=== PATIENT | female | born 1945 | race Caucasian/White ===

== ENCOUNTER 2016-10-07 10:31 | Outpatient (CLI) | payer MEDICARE, OTHER ==
--- NOTE | 2016-10-08 11:53 | DEXA Report ---
DEXA BONE MINERAL DENSITY SCAN: 10/07/2016 CLINICAL HISTORY: A 71-year-old postmenopausal female. TECHNIQUE: Dual energy x-ray absorptiometry (DXA) was performed on a [employer] system. Regions measured are the AP spine, femoral neck, and, if needed, forearm. COMPARISON: None. In accordance with the International Society for Clinical Densitometry (ISCD) guidelines, data from previous exams may be reanalyzed using current recommendations and techniques. This is done to allow a more accurate basis for comparison with the current study. FINDINGS: The data for the lumbar spine is as follows: REGION BMD (g/cm/cm) T-SCORE Z-SCORE L1 0.810 -2.7 -0.9 L2 0.983 -1.8 0.0 L3 1.091 -0.9 0.9 L4 1.202 0.0 1.8 TOTAL 1.025 -1.3 0.5 NOTE: All evaluable vertebrae are used for classification. The data for the hip is as follows: REGION BMD (g/cm/cm) T-SCORE Z-SCORE Neck 1.000 -0.3 1.6 TOTAL 0.940 -0.5 1.1 NOTE: The femoral neck or total proximal femur, whichever is lowest, is used for classification. IMPRESSION: THE WHO CLASSIFICATION BASED ON THE INTERNATIONAL REFERENCE STANDARD IS MILD OSTEOPENIA. PATIENT HAS A MILD INCREASED FRACTURE RISK. RECOMMENDATION: Patients with diagnosis of osteoporosis or osteopenia should have regular bone mineral density assessment. For those eligible for Medicare, routine testing is allowed once every 2 years. Testing frequency can be increased for patients who have rapidly progressing disease or for those who are receiving medical therapy to restore bone mass. COMMENT: World Health Organization (WHO) definitions for osteoporosis and osteopenia: NORMAL BMD: T-score at -1.0 or higher, fracture risk is low. OSTEOPENIA BMD: T-score between -1.0 and -2.5, fracture risk is increased. OSTEOPOROSIS BMD: T-score at -2.5 or lower, fracture risk high. National Osteoporosis Foundation recommends: 1. Obtain adequate dietary calcium (at least 1200 mg per day) and vitamin D (400 -800 international units per day). 2. Participate, as appropriate, in regular weightbearing and muscle- strengthening exercise. 3. Avoid tobacco use and reduce alcohol and caffeine intake. 4. For more detailed information see the website at www.NOF.org. MTDD
== END 2016-10-07 10:32 | disposition home or self-care (01) ==
LOC: DI 10:31
PROVIDERS: ATTEND Family Medicine
DX: M85.88 Other specified disorders of bone density and structure, other site (principal)
CPT/HCPCS: 77080

== ENCOUNTER 2017-02-03 08:00 | Outpatient (CLI) | payer MEDICARE, OTHER ==
[2017-02-03 19:47] LABS: CREATININE 1.1 mg/dL (0.4-1.0)
== END 2017-02-03 08:01 | disposition home or self-care (01) ==
LOC: LAB.WCP 08:00
PROVIDERS: ATTEND Physician Assistant Medical
DX: B35.1 Tinea unguium (principal); Z79.899 Other long term (current) drug therapy
CPT/HCPCS: 36415; 82565; 84450; 84460

== ENCOUNTER 2017-03-23 14:25 | Outpatient (CLI) | payer MEDICARE, OTHER ==
[2017-03-23 19:22] LABS: CREATININE 1.3 mg/dL (0.4-1.0)
== END 2017-03-23 14:26 ==
LOC: LAB.WCP 14:25
PROVIDERS: ATTEND Physician Assistant Medical
DX: B35.1 Tinea unguium (principal); Z79.899 Other long term (current) drug therapy
CPT/HCPCS: 36415; 82565; 84450; 84460

== ENCOUNTER 2017-03-30 11:35 | Outpatient (CLI) | payer MEDICARE, OTHER ==
--- NOTE | 2017-03-31 15:42 | Mammography Report ---
DATE OF SERVICE: 03/30/2017 DIGITAL SCREENING MAMMOGRAM: 03/30/2017 CLINICAL INDICATION: A 71-year-old, for screening. COMPARISON: 02/2016, 02/2015, 06/2013, 03/2012, 03/2011, 03/2010, 03/2009. TECHNIQUE: Routine CC and MLO projections were obtained of the breasts. FINDINGS: The breasts demonstrate fatty replacement bilaterally. Punctate, typically benign calcifications are present. No suspicious masses, clustered microcalcifications, or regions of architectural distortion are identified. IMPRESSION: BENIGN FINDINGS. RECOMMENDATION: ROUTINE ANNUAL SCREENING UNLESS OTHERWISE CLINICALLY INDICATED. BIRADS CATEGORY 2-BENIGN FINDINGS. STANDARD QUALIFYING STATEMENTS: 1. This examination was reviewed with the aid of Computer-Aided Detection (CAD). 2. A negative or benign imaging report should not delay biopsy if clinically suspicious findings are present. Consider surgical consultation if warranted. More than 5% of cancers are not identified by imaging. 3. Dense breasts may obscure an underlying neoplasm. TD: 03/31/2017 16:41
== END 2017-03-30 11:36 | disposition home or self-care (01) ==
LOC: DI.N 11:35
PROVIDERS: ATTEND Family Medicine
DX: Z12.31 Encounter for screening mammogram for malignant neoplasm of breast (principal)
CPT/HCPCS: 77067

== ENCOUNTER 2017-05-06 12:15 | Outpatient (CLI) | payer MEDICARE, OTHER ==
[2017-05-06 18:49] LABS: CREATININE 0.9 mg/dL (0.4-1.0)
== END 2017-05-06 12:16 | disposition home or self-care (01) ==
LOC: LAB.WCP 12:15
PROVIDERS: ATTEND Physician Assistant Medical
DX: B35.1 Tinea unguium (principal); Z79.899 Other long term (current) drug therapy
CPT/HCPCS: 36415; 82565; 84450; 84460

== ENCOUNTER 2017-07-02 08:00 | Outpatient (CLI) | payer MEDICARE, OTHER ==
[2017-07-02 19:07] LABS: CREATININE 0.8 mg/dL (0.4-1.0)
== END 2017-07-02 08:01 | disposition home or self-care (01) ==
LOC: LAB.WCP 08:00
PROVIDERS: ATTEND Physician Assistant Medical
DX: B35.1 Tinea unguium (principal); Z79.899 Other long term (current) drug therapy
CPT/HCPCS: 36415; 82565; 84450; 84460

== ENCOUNTER 2017-10-08 14:31 | Outpatient (CLI) | payer MEDICARE, OTHER ==
--- NOTE | 2017-10-08 18:05 | Ultrasound Report ---
Procedure Date: 10/08/2017 Accession Number: [id number] / [id number] Procedure: US - Ankle Brachial Index CPT Code: FULL RESULT: EXAM: ANKLE-BRACHIAL INDEX. EXAM DATE: 10/08/2017 04:51 PM. CLINICAL HISTORY: Leg pain, right, decreased dorsalis pedis pulse. COMPARISON: None. TECHNIQUE: Targeted color and spectral Doppler imaging was performed of the bilateral posterior tibial and dorsalis pedis arteries. [employer] images were saved. Blood pressures were also obtained at the bilateral brachial arteries and posterior tibial arteries. FINDINGS: Peak systolic velocities (cm/s) and waveform morphologies: Right HOT PLATE PLYWOOD PRESS OFFBEARER: 94, biphasic Right DPA: 87, biphasic Left HOT PLATE PLYWOOD PRESS OFFBEARER: 90, biphasic Left DPA: 46, biphasic. Brisk upstroke persists. JONAS: Right: 0.96 Left: 0.94 IMPRESSION: 1. Normal bilateral ankle brachial indices. 2. Mildly decreased velocity in the left dorsalis pedis artery without evidence of hemodynamically significant stenosis. RADIA
== END 2017-10-08 14:32 | disposition home or self-care (01) ==
LOC: DI 14:31
PROVIDERS: ATTEND Family Medicine
DX: M79.604 Pain in right leg (principal); R09.89 Other specified symptoms and signs involving the circulatory and respiratory systems
CPT/HCPCS: 93922

== ENCOUNTER 2017-10-12 08:00 | Outpatient (CLI) | payer MEDICARE, OTHER ==
[2017-10-12 12:39] LABS: BASOPHILS # (AUTO) 0.1 10^3/uL (0.0-0.1); BASOPHILS % (AUTO) 1.4 %; EOSINOPHILS # (AUTO) 0.1 10^3/uL (0.0-0.7); EOSINOPHILS % (AUTO) 1.5 %; HGB - HEMOGLOBIN 13.2 g/dL (12.0-16.0); LYMPHOCYTES # (AUTO) 1.1 10^3/uL (1.5-3.5); LYMPHOCYTES % (AUTO) 30.4 %; MEAN CORPUSCULAR HEMOGLOBIN 31.8 pg (27.0-31.0); MEAN CORPUSCULAR VOLUME 93.7 fL (81.0-99.0); MEAN PLATELET VOLUME 7.9 fL (7.9-10.8); MONOCYTES # (AUTO) 0.3 10^3/uL (0.0-1.0); MONOCYTES % (AUTO) 7.5 %; NEUTROPHILS # (AUTO) 2.2 10^3/uL (1.5-6.6); NEUTROPHILS % (AUTO) 59.2 %; PLT - PLATELET COUNT 261 10^3/uL (130-450); RED BLOOD COUNT 4.14 10^6/uL (4.20-5.40); RED CELL DISTRIBUTION WIDTH 12.6 % (12.0-15.0); WHITE BLOOD COUNT 3.7 x10^3/uL (4.8-10.8)
[2017-10-12 13:05] LABS: ALBUMIN 4.1 g/dL (3.2-5.5); ALBUMIN/GLOBULIN RATIO 1.3 (1.0-2.2); ALKALINE PHOSPHATASE 59 IU/L (42-121); ALT ALANINE AMINOTRANSFERASE 25 IU/L (10-60); AST ASPARTATE AMINOTRANSFERASE 28 IU/L (10-42); BILIRUBIN,TOTAL 0.9 mg/dL (0.2-1.0); BUN - BLOOD UREA NITROGEN 17 mg/dL (6-20); CALCIUM 9.2 mg/dL (8.5-10.3); CARBON DIOXIDE - CO2 27 mmol/L (21-32); CHLORIDE 103 mmol/L (101-111); CHOL/HDL RATIO 2.5 (<4.4); CHOLESTEROL 164 mg/dL; CREATININE 0.8 mg/dL (0.4-1.0); GFR - MDRD 70 (>89); GLUCOSE 116 mg/dL (70-100); HDL CHOLESTEROL 65 mg/dL; LDL CHOLESTEROL,CALCULATED 88 mg/dL; LDL/HDL RATIO 1.4 (<4.4); SODIUM 139 mmol/L (135-145); TOTAL PROTEIN 7.3 g/dL (6.7-8.2); VLDL CHOLESTEROL 11 mg/dL
[2017-10-12 13:27] LABS: HB2 TOTAL 14.1 g/dL; HEMOGLOBIN A1C 0.58 g/dL; HEMOGLOBIN A1C % 5.9 % (4.6-6.2)
== END 2017-10-12 08:01 | disposition home or self-care (01) ==
LOC: LAB.WCP 08:00
PROVIDERS: ATTEND Family Medicine
DX: E87.6 Hypokalemia (principal); R73.01 Impaired fasting glucose; E78.5 Hyperlipidemia, unspecified
CPT/HCPCS: 36415; 80053; 80061; 83036; 83721; 84443; 85025

== ENCOUNTER 2018-04-11 11:30 | Outpatient (CLI) | payer MEDICARE, OTHER ==
--- NOTE | 2018-04-12 09:03 | Mammography Report ---
Reason: SCREENING MAMMO Procedure Date: 04/11/2018 Accession Number: [id number] / [id number] Procedure: MGN - Screening Mammo Dig Bilat CPT Code: FULL RESULT: EXAM: Screening Mammo Dig Bilat DATE: 04/11/2018 11:48 AM CLINICAL HISTORY: Screening encounter. No reported risk factors. TECHNIQUE: Bilateral CC and MLO views were obtained. COMPARISON: 03/30/2017 through 06/30/2013. FINDINGS: The breasts demonstrate diffuse fatty replacement bilaterally. There are coarse typically benign calcifications. No suspicious masses, clustered microcalcifications, or regions of architectural distortion are identified. IMPRESSION: Benign findings RECOMMENDATION: Routine annual screening unless otherwise clinically indicated. BIRADS CATEGORY 2: Benign findings STANDARD QUALIFYING STATEMENTS: 1. This examination was reviewed with the aid of Computer-Aided Detection (CAD). 2. A negative or benign imaging report should not preclude biopsy if clinically suspicious findings are present. 3. Dense breasts may obscure an underlying neoplasm. 4. This examination was reviewed without the aid of 3D breast imaging (tomosynthesis).
== END 2018-04-11 11:31 | disposition home or self-care (01) ==
LOC: DI.N 11:30
DX: Z12.31 Encounter for screening mammogram for malignant neoplasm of breast (principal)
CPT/HCPCS: 77067

== ENCOUNTER 2018-08-18 08:00 | Outpatient (CLI) | payer MEDICARE, OTHER ==
[2018-08-18 12:48] LABS: BASOPHILS % (AUTO) 1.1 %; EOSINOPHILS # (AUTO) 0.1 10^3/uL (0.0-0.7); EOSINOPHILS % (AUTO) 1.8 %; HGB - HEMOGLOBIN 13.5 g/dL (12.0-16.0); LYMPHOCYTES # (AUTO) 1.4 10^3/uL (1.5-3.5); LYMPHOCYTES % (AUTO) 37.3 %; MEAN CORPUSCULAR HEMOGLOBIN 31.2 pg (27.0-31.0); MEAN CORPUSCULAR HGB CONC 33.4 g/dL (32.0-36.0); MEAN CORPUSCULAR VOLUME 93.4 fL (81.0-99.0); MONOCYTES # (AUTO) 0.3 10^3/uL (0.0-1.0); MONOCYTES % (AUTO) 7.9 %; NEUTROPHILS # (AUTO) 1.9 10^3/uL (1.5-6.6); NEUTROPHILS % (AUTO) 51.9 %; PLT - PLATELET COUNT 290 10^3/uL (130-450); RED BLOOD COUNT 4.31 10^6/uL (4.20-5.40); RED CELL DISTRIBUTION WIDTH 12.7 % (12.0-15.0); WHITE BLOOD COUNT 3.7 x10^3/uL (4.8-10.8)
[2018-08-18 13:16] LABS: FERRITIN 69.7 ng/mL (11.0-306.8)
[2018-08-18 13:24] LABS: % IRON SATURATION 16 % (20-50); ALBUMIN 4.2 g/dL (3.2-5.5); ALBUMIN/GLOBULIN RATIO 1.2 (1.0-2.2); ALKALINE PHOSPHATASE 61 IU/L (42-121); ALT ALANINE AMINOTRANSFERASE 21 IU/L (10-60); AST ASPARTATE AMINOTRANSFERASE 25 IU/L (10-42); BILIRUBIN,TOTAL 0.8 mg/dL (0.2-1.0); BUN - BLOOD UREA NITROGEN 21 mg/dL (6-20); CALCIUM 9.4 mg/dL (8.5-10.3); CARBON DIOXIDE - CO2 25 mmol/L (21-32); CHLORIDE 103 mmol/L (101-111); CHOL/HDL RATIO 2.9 (<4.4); CHOLESTEROL 174 mg/dL; CREATININE 0.7 mg/dL (0.4-1.0); GFR - MDRD 82 (>89); GLUCOSE 110 mg/dL (70-100); HDL CHOLESTEROL 60 mg/dL; IRON 63 ug/dL (28-170); LDL CHOLESTEROL,CALCULATED 105 mg/dL; LDL/HDL RATIO 1.8 (<4.4); SODIUM 139 mmol/L (135-145); TOTAL IRON BINDING CAPACITY 382 ug/dL (250-450); TOTAL PROTEIN 7.6 g/dL (6.7-8.2); TRANSFERRIN 273 mg/dL (192-382); VLDL CHOLESTEROL 9 mg/dL
== END 2018-08-18 23:59 | disposition home or self-care (01) ==
LOC: LAB.WCP 08:00
PROVIDERS: ATTEND Family Medicine
DX: I73.00 Raynaud's syndrome without gangrene (principal); E03.9 Hypothyroidism, unspecified; D64.9 Anemia, unspecified; R01.1 Cardiac murmur, unspecified
CPT/HCPCS: 36415; 80053; 80061; 82728; 83540; 83721; 84443; 84466; 85025

== ENCOUNTER 2018-08-19 12:38 | Outpatient (CLI) | payer MEDICARE, OTHER | END 2018-08-19 12:39 | disposition home or self-care (01) | LOC: DI 12:38 | PROVIDERS: ATTEND Family Medicine | DX: R01.1 Cardiac murmur, unspecified (principal) | CPT/HCPCS: 93306 ==

== ENCOUNTER 2018-09-29 19:48 | Outpatient (CLI) | payer MEDICARE, OTHER | END 2018-09-29 19:49 | disposition critical access hospital (66) | LOC: EMS 19:48 | PROVIDERS: ATTEND Surgery | DX: R55 Syncope and collapse (principal); R42 Dizziness and giddiness; S09.90XA Unspecified injury of head, initial encounter; W18.39XA Other fall on same level, initial encounter; W22.8XXA Striking against or struck by other objects, initial encounter; Y92.000 Kitchen of unspecified non-institutional (private) residence as the place of occurrence of the external cause | CPT/HCPCS: A0425; A0429 ==

== ENCOUNTER 2018-09-29 20:08 | Emergency (ER) | payer MEDICARE, OTHER ==
[2018-09-29] MEDS ORDERED: SODIUM CHLORIDE 0.9% 1,000 ML IV ONE (20:14)
[2018-09-29 20:36] LABS: BASOPHILS % (AUTO) 0.5 %; EOSINOPHILS % (AUTO) 1.1 %; LYMPHOCYTES # (AUTO) 1.1 10^3/uL (1.5-3.5); LYMPHOCYTES % (AUTO) 29.3 %; MEAN CORPUSCULAR HEMOGLOBIN 31.1 pg (27.0-31.0); MEAN CORPUSCULAR HGB CONC 32.8 g/dL (32.0-36.0); MEAN CORPUSCULAR VOLUME 94.7 fL (81.0-99.0); MEAN PLATELET VOLUME 8.7 fL (7.9-10.8); MONOCYTES # (AUTO) 0.3 10^3/uL (0.0-1.0); MONOCYTES % (AUTO) 7.9 %; NEUTROPHILS # (AUTO) 2.2 10^3/uL (1.5-6.6); NEUTROPHILS % (AUTO) 60.9 %; PLT - PLATELET COUNT 206 10^3/uL (130-450); RED BLOOD COUNT 3.22 10^6/uL (4.20-5.40); RED CELL DISTRIBUTION WIDTH 12.3 % (12.0-15.0); WHITE BLOOD COUNT 3.7 x10^3/uL (4.8-10.8)
[2018-09-29 20:48] LABS: ALBUMIN 3.4 g/dL (3.2-5.5); ALBUMIN/GLOBULIN RATIO 1.3 (1.0-2.2); BILIRUBIN,TOTAL 0.5 mg/dL (0.2-1.0); CALCIUM 8.4 mg/dL (8.5-10.3); CREATININE 0.8 mg/dL (0.4-1.0)
--- NOTE | 2018-09-29 21:20 | ED Physician Documentation ---
PD HPI SYNCOPE - Stated complaint Stated Complaint: GLF/NEAR SYNCOPE - Chief complaint Chief Complaint: Trauma Hd/Nk - History obtained from History obtained from: Patient - History of Present Illness Witnessed: Witnessed Timing - onset: Today Duration: Other (She was near syncopal) Preceding symptoms: Light headed, Generalized weakness. No: None Associated symptoms: Nausea / vomiting (While lying on the ground). No: Seizure, Incontinant of urine, Incontinant of stool, Chest pain, Palpitations, Diaphoresis, Dyspnea Contributing factors: Other (Gave blood today). No: Recent med change Injury occurred: Fell, Head injury. No: Neck injury Pain level max: 0 Pain level now: 0 Similar symptoms before: Other (Patient has experienced this previously when she gave blood) Recently seen: Not recently seen - Additional information Additional information: This is a 73-year-old woman who presents with her complains that she gave blood this afternoon around 330. She felt fine and was at home making dinner around 615 for about 45 minutes. Around 7:00 she felt very lightheaded so she sat down on a stool in the kitchen and she sat there she just tipped over falling forward onto the floor and hit her head on the edge of the counter. She did not pass out. She laid there for a bit and then sat up and was feeling okay but she could not get up off the floor because she was just too lightheaded so she called her who came in she was very clammy. She laid back down so she would not pass out and her called 911. When EMS arrived she was still laying on the ground to had an episode of vomiting. They were able to stand her up and help her to the [place]. She says is not like a dizzy sensation it worsened spinning sensation that she is very lightheaded. She denies any chest pain, palpitations or shortness of breath. Denies neck pain. She currently feels just very fatigued. Denies headache or change in her vision. Of note the patient had a similar reaction after giving blood one time in the past.She is on blood pressure medications and takes a baby aspirin daily. Review of Systems Constitutional: denies: Fever Eyes: denies: Loss of vision Nose: denies: Rhinorrhea / runny nose Throat: denies: Sore throat Cardiac: denies: Chest pain / pressure, Palpitations Respiratory: denies: Dyspnea, Cough GI: reports: Vomiting. denies: Abdominal Pain, Nausea : denies: Dysuria, Incontinent Musculoskeletal: denies: Neck pain Neurologic: reports: Generalized weakness, Near syncope, Head injury. denies: Numbness, Difficulty speaking, Syncope, Confused, Altered mental status, Headache, LOC Endocrine: reports: Other (She is not diabetic) PD PAST MEDICAL HISTORY - Past Medical History Past Medical History: Yes Cardiovascular: Hypertension, High cholesterol Respiratory: None Endocrine/Autoimmune: None GI: GERD, Diverticulitis : None HEENT: None Musculoskeletal: None Derm: None - Past Surgical History Past Surgical History: Yes General: Bowel surgery, Colonoscopy - Present Medications Home Medications: Ambulatory Orders Medication Instructions Recorded Confirmed Losartan [Cozaar] 25 mg PO BID 09/08/12 05/08/14 Indapamide [Lozol] 1.25 mg 05/08/14 05/08/14 Nitrofurantoin Monohyd/M-Cryst 100 mg PO BID #13 capsule 05/08/14 [Macrobid 100 mg Capsule] Phenazopyridine [Pyridium] 200 mg PO TID 6 Days tablet 05/08/14 - Allergies Allergies/Adverse Reactions: Allergies Allergy/AdvReac Type Severity Reaction Status Date / Time No Known Drug Allergies Allergy Verified 09/29/18 20:14 - Social History Does the pt smoke?: No Smoking Status: Never smoker Does the pt drink ETOH?: Yes Does the pt have substance abuse?: No PD ED PE NORMAL - Vitals Vital signs reviewed: Yes - General General: Alert and oriented X 3, No acute distress, Well developed/nourished - HEENT HEENT: PERRL, EOMI, Moist mucous membranes, Other (There is a linear gerardo on her right forehead heading into the hairline. Minor abrasion associated with it. No hematoma.) - Neck Neck: Supple, no meningeal sign, No bony TTP - Cardiac Cardiac: RRR, No murmur - Respiratory Respiratory: No respiratory distress, Clear bilaterally - Abdomen Abdomen: Normal bowel sounds, Soft, Non tender - Derm Derm: Normal color, Warm and dry, No rash - Extremities Extremities: No deformity, Normal ROM s pain, No edema - Neuro Neuro: Alert and oriented X 3, cna hospice 2-12 intact, No motor deficit, No sensory deficit, Normal speech, Other (Reflexes symmetrical at the quadriceps bilaterally) - Psych Psych: Normal mood, Normal affect Results - Vitals Vitals: Vital Signs - 24 hr 09/29/18 09/29/18 09/29/18 20:09 20:27 22:10 Temperature 36.8 C Heart Rate 66 67 62 Respiratory 16 10 L 11 L Rate Blood Pressure 122/77 122/77 135/62 H O2 Saturation 100 100 99 09/29/18 09/30/18 23:54 00:28 Temperature 36.5 C Heart Rate 96 71 Respiratory 14 16 Rate Blood Pressure 129/68 146/74 H O2 Saturation 100 100 Oxygen O2 Source Room air - EKG (time done) 2018 Rate: Rate (enter#) Rhythm: NSR Intervals: Normal TN QRS: Normal Ischemia: Normal ST segments - Labs Labs: Laboratory Tests 09/29/18 09/29/18 20:29 20:29 WBC 3.7 L RBC 3.22 L Hgb 10.0 L Hct 30.5 L MCV 94.7 MCH 31.1 H MCHC 32.8 RDW 12.3 Plt Count 206 MPV 8.7 Neut # (Auto) 2.2 Lymph # (Auto) 1.1 L [place] # (Auto) 0.3 Eos # (Auto) 0.0 Baso # (Auto) 0.0 Absolute Nucleated RBC 0.00 Nucleated RBC % 0.0 Sodium 139 Potassium 3.0 L Chloride 103 Carbon Dioxide 21 Anion Gap 15.0 H BUN 23 H Creatinine 0.8 Estimated GFR (MDRD) 70 L Glucose 108 H Calcium 8.4 L Total Bilirubin 0.5 AST 21 ALT 21 Alkaline Phosphatase 42 Total Protein 6.0 L Albumin 3.4 Globulin 2.6 Albumin/Globulin Ratio 1.3 Lipase 32 PD MEDICAL DECISION MAKING - ED course Complexity details: re-evaluated patient, d/w patient, d/w family ED course: This is a 73-year-old woman who is on antihypertensive medications and takes aspirin daily who had a near syncopal episode After giving blood today.. Her head CT is negative for any hemorrhage. Potassium was low and she was supplemented with oral replacement. She is neurologically intact. She is discharged home. Departure - Departure Disposition: 01 Home, Self Care Clinical Impression: Vasovagal near-syncope Condition: Good Instructions: ED Near Syncope Unkn Follow-Up: Rico Goel MD [Primary Care Provider] - Comments: Avoid giving blood in the future. You should follow-up with your primary care provider about the low potassium to see if you need a routine potassium supplement and drink plenty of water. Discharge Date/Time: 09/30/18 00:31
--- NOTE | 2018-09-29 22:57 | CT Report ---
Reason: fall, hit R forehead on cabinet edge Procedure Date: 09/29/2018 Accession Number: [id number] / [id number] Procedure: CT - HEAD WO CPT Code: FULL RESULT: EXAM: CT HEAD EXAM DATE: 09/29/2018 10:35 PM. CLINICAL HISTORY: Fall, hit R forehead on cabinet edge. COMPARISON: None. TECHNIQUE: Multiaxial CT images were obtained from the foramen magnum to the vertex. Reformats: Sagittal and coronal. IV contrast: None. In accordance with CT protocol optimization, one or more of the following dose reduction techniques were utilized for this exam: automated exposure control, adjustment of mA and/or KV based on patient size, or use of iterative reconstructive technique. FINDINGS: Parenchyma: No intraparenchymal hemorrhage. No evidence of mass, midline shift, or CT findings of infarction. Lu-white differentiation is distinct. Extraaxial Spaces: Normal for age. No subdural or epidural collections identified. Ventricles: Normal in size and position. Sinuses and Orbits: Imaged paranasal sinuses, orbits, and mastoids show no significant abnormality. Bones: No evidence of fracture or calvarial defect. Other: None. IMPRESSION: No acute or focal intracranial abnormality. RADIA
[2018-09-29] MEDS ORDERED: POTASSIUM CHLORIDE 20 MEQ TABLET PO ONE (23:44)
[2018-09-30] MEDS ORDERED: POTASSIUM CHLORIDE 20 MEQ TABLET PO ONE (00:04)
[2018-09-30 00:30] VITALS: BP 146/74
== END 2018-09-30 00:31 | disposition home or self-care (01) ==
LOC: EDUNIT# → ED 20:08
DX: R55 Syncope and collapse (principal); I10 Essential (primary) hypertension
CPT/HCPCS: 36415; 70450; 80053; 83690; 85025; 93005; 96360; 99284; A9270

== ENCOUNTER 2018-10-10 08:00 | Outpatient (CLI) | payer MEDICARE, OTHER ==
[2018-10-10 18:41] LABS: BASOPHILS % (AUTO) 0.6 %; EOSINOPHILS % (AUTO) 0.8 %; LYMPHOCYTES # (AUTO) 1.4 10^3/uL (1.5-3.5); LYMPHOCYTES % (AUTO) 29.5 %; MEAN CORPUSCULAR HEMOGLOBIN 31.9 pg (27.0-31.0); MEAN CORPUSCULAR HGB CONC 33.2 g/dL (32.0-36.0); MEAN CORPUSCULAR VOLUME 95.9 fL (81.0-99.0); MEAN PLATELET VOLUME 9.6 fL (7.9-10.8); MONOCYTES # (AUTO) 0.4 10^3/uL (0.0-1.0); MONOCYTES % (AUTO) 8.9 %; NEUTROPHILS # (AUTO) 2.9 10^3/uL (1.5-6.6); NEUTROPHILS % (AUTO) 59.8 %; PLT - PLATELET COUNT 326 10^3/uL (130-450); RED BLOOD COUNT 3.45 10^6/uL (4.20-5.40); RED CELL DISTRIBUTION WIDTH 12.8 % (12.0-15.0); WHITE BLOOD COUNT 4.9 x10^3/uL (4.8-10.8)
[2018-10-10 20:09] LABS: CREATININE 0.8 mg/dL (0.4-1.0)
[2018-10-10 20:10] LABS: CALCIUM 9.2 mg/dL (8.5-10.3)
== END 2018-10-10 23:59 | disposition home or self-care (01) ==
LOC: LAB.WCP 08:00
PROVIDERS: ATTEND Family Medicine
DX: E87.6 Hypokalemia (principal); D64.9 Anemia, unspecified
CPT/HCPCS: 36415; 80048; 85025

== ENCOUNTER 2019-01-19 07:00 | Outpatient (CLI) | payer MEDICARE, OTHER | END 2019-01-19 23:59 | disposition home or self-care (01) | LOC: LAB.WCP 07:00 | PROVIDERS: ATTEND Internal Medicine Cardiovascular Disease | DX: I47.1 Supraventricular tachycardia (principal) | CPT/HCPCS: 36415; 83735; 84443 ==

== ENCOUNTER 2019-02-17 08:00 | Outpatient (CLI) | payer MEDICARE, OTHER ==
[2019-02-17 12:30] LABS: CALCIUM 8.8 mg/dL (8.5-10.3); CREATININE 0.9 mg/dL (0.4-1.0)
== END 2019-02-17 23:59 | disposition home or self-care (01) ==
LOC: LAB.WCP 08:00
PROVIDERS: ATTEND Internal Medicine Cardiovascular Disease
DX: I10 Essential (primary) hypertension (principal)
CPT/HCPCS: 36415; 80048

== ENCOUNTER 2019-03-13 19:42 | Emergency (ER) | payer MEDICARE, OTHER ==
[2019-03-13 19:53] VITALS: BP 139/66
[2019-03-13] MEDS ORDERED: BUFFERED LIDOCAINE 10 ML SYRINGE SUBQ STA (20:26)
[2019-03-13] MEDS ORDERED: TETANUS/DIPHTHERIA/PERTUSSIS 0.5 ML SYRINGE IM ONE (20:42)
--- NOTE | 2019-03-13 20:44 | ED Physician Documentation ---
PD HPI UPPER EXT INJURY - Stated complaint Stated Complaint: LT THUMB LAC - Chief complaint Chief Complaint: Laceration - History obtained from History obtained from: Patient, Family - History of Present Illness Location: Left, Hand Type of injury: Laceration Where injury occurred: Home Timing - onset: Today Timing - duration: Hours Timing - details: Abrupt onset, Still present in ED Improved by: Rest, Immobilization Worsened by: Moving, Palpating Associated symptoms: No: Weakness, Numbness, Tingling, Swelling, Discolored Contributing factors: Anticoagulated (on asa nightly baby) Similar symptoms before: Diagnosis (laceration) Recently seen: Not recently seen - Additonal information Additional information: 73-year-old female was preparing dinner when she was opening a package with a knife and lacerated her left thumb. She has full function of the thumb full sensation was able to control bleeding with direct pressure finished dinner and has come to the emergency department for suturing. Review of Systems Constitutional: denies: Fever Nose: denies: Congestion Throat: denies: Sore throat Respiratory: denies: Cough GI: denies: Nausea, Vomiting Skin: reports: Laceration (s) PD PAST MEDICAL HISTORY - Past Medical History Cardiovascular: Hypertension, High cholesterol Respiratory: None Endocrine/Autoimmune: None GI: GERD, Diverticulitis : None HEENT: None Musculoskeletal: None Derm: None - Past Surgical History Past Surgical History: Yes General: Bowel surgery, Colonoscopy - Present Medications Home Medications: Ambulatory Orders Medication Instructions Recorded Confirmed Losartan [Cozaar] 25 mg PO BID 09/08/12 05/08/14 Indapamide [Lozol] 1.25 mg 05/08/14 05/08/14 Nitrofurantoin Monohyd/M-Cryst 100 mg PO BID #13 capsule 05/08/14 [Macrobid 100 mg Capsule] Phenazopyridine [Pyridium] 200 mg PO TID 6 Days tablet 05/08/14 - Allergies Allergies/Adverse Reactions: Allergies Allergy/AdvReac Type Severity Reaction Status Date / Time alendronate sodium Allergy Unknown Verified 03/13/19 19:53 [From Fosamax] lisinopril Allergy Respiratory Verified 03/13/19 19:53 - Social History Does the pt smoke?: No Smoking Status: Never smoker Does the pt drink ETOH?: Yes Does the pt have substance abuse?: No PD ED PE NORMAL - Vitals Vital signs reviewed: Yes (hypertnesive mild ) - General General: Alert and oriented X 3, No acute distress, Well developed/nourished - HEENT HEENT: Atraumatic, PERRL, EOMI - Respiratory Respiratory: No respiratory distress - Derm Derm: Normal color, Warm and dry, No rash - Extremities Extremities: No deformity, No edema, Other (There is a 2 cm laceration over the dorsal proximal left thumb without interruption of distal neurovascular components. The wound explored to its depth does not interrupt deeper structures.) - Neuro Neuro: Alert and oriented X 3, sister superior 2-12 intact, No motor deficit, No sensory deficit, Normal speech Eye Opening: Spontaneous Motor: Obeys Commands Verbal: Oriented GCS Score: 15 - Psych Psych: Normal mood, Normal affect Results - Vitals Vitals: Vital Signs - 24 hr 03/13/19 19:50 Temperature 36.3 C L Heart Rate 83 Respiratory 18 Rate Blood Pressure 139/66 H O2 Saturation 96 Oxygen O2 Source Room air Procedures - Laceration (location) thumb Length in cm: 2 Wound type: Linear, Clean Neurovascular status: Sensory intact, Motor intact, Vascular intact Tendon involvement: Tendon intact Anesthesia: Lidocaine 1%, With bicarb Wound Preparation: Hibiclens, Irrigated copiously NS, Wound explored, To the base Skin layer closure: Nylon, Interrupted, Size #-0 - enter number (4-0) Other: Patient tolerated well, No complications, Neurovascular intact, Dressing applied, Tetanus booster given Complexity: Simple PD MEDICAL DECISION MAKING - ED course Complexity details: considered differential, d/w patient, d/w family ED course: 73-year-old female with a left thumb laceration is sutured and given a tetanus booster. Departure - Departure Disposition: 01 Home, Self Care Clinical Impression: Thumb laceration Qualifiers: Encounter type: initial encounter Damage to nail status: without damage Foreign body presence: without foreign body Laterality: left Qualified Code(s): S61.012A - Laceration without foreign body of left thumb without damage to nail, initial encounter Condition: Stable Instructions: ED Laceration Hand Follow-Up: Rico Goel MD [Primary Care Provider] - Comments: Sutures will need to be removed in 7 to 10 days.
== END 2019-03-13 21:06 | disposition home or self-care (01) ==
LOC: ED 19:42
DX: S61.012A Laceration without foreign body of left thumb without damage to nail, initial encounter (principal); W26.0XXA Contact with knife, initial encounter; Y93.89 Activity, other specified; Y92.009 Unspecified place in unspecified non-institutional (private) residence as the place of occurrence of the external cause; Z23 Encounter for immunization; I10 Essential (primary) hypertension
CPT/HCPCS: 12001; 90471

== ENCOUNTER 2019-04-25 10:29 | Outpatient (CLI) | payer MEDICARE, OTHER ==
--- NOTE | 2019-04-26 18:49 | Mammography Report ---
Reason: screening mammo Procedure Date: 04/25/2019 Accession Number: [id number] / [id number] Procedure: MGN - Screening Mammo Dig Bilat CPT Code: Final Report FULL RESULT: EXAM: Screening Mammo Dig Bilat DATE: 04/25/2019 10:49 AM CLINICAL HISTORY: Routine screening TECHNIQUE: (B) - Bilateral CC and MLO views were obtained. COMPARISON: 04/11/2018, 03/30/2017, 02/20/2016, 02/27/2015, 06/30/2013 and 04/05/2012 PARENCHYMAL PATTERN: (F) - The breasts demonstrate diffuse fatty replacement bilaterally. FINDINGS: No significant interval change. There are no suspicious masses, calcifications, or areas of distortion. IMPRESSION: Negative examination. BI-RADS category 1. RECOMMENDATION: (ANNUAL) - Recommend routine annual screening mammography. BI-RADS CATEGORY: (1) - Negative. STANDARD QUALIFYING STATEMENTS: 1. This examination was not reviewed with the aid of Computer-Aided Detection (CAD). 2. A negative or benign imaging report should not preclude biopsy if clinically suspicious findings are present. 3. Dense breasts may obscure an underlying neoplasm. 4. This examination was reviewed without the aid of 3D breast imaging (tomosynthesis).
== END 2019-04-25 10:30 | disposition home or self-care (01) ==
LOC: DI.N 10:29
DX: Z12.31 Encounter for screening mammogram for malignant neoplasm of breast (principal)
CPT/HCPCS: 77067

== ENCOUNTER 2019-09-28 02:12 | Emergency (ER) | payer MEDICARE, OTHER ==
--- NOTE | 2019-09-28 02:21 | ED Physician Documentation ---
History of Present Illness - Stated complaint Stated Complaint: HBP/NECK/SHOULDER PX - History obtained from History obtained from: Patient - History of Present Illness Timing: How many days ago (2) Pain level max: 8 Pain level now: 4 Improved by: rest Worsened by: movement, particularly with movement of head, turning head to the right - Additonal information Additional information: c/o 2 days of "stiff neck" (per patient) without injury or apparent inciting event. Pain has gradually worsened and radiates to both shoulders posteriorly, distinctly worse with movement such as lifting head (neck flexion), worst with turning head to the right. denies fever, ESCALERA, chest pain, dyspnea. Woke tonight 12:45 AM with same pain but more intense and thus comes to ED for evaluation. 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 Has noted higher blood pressures than her baseline, 170s SBP tonight when she took it at home. Review of Systems Constitutional: reports: Reviewed and negative Eyes: reports: Reviewed and negative Cardiac: reports: Reviewed and negative Respiratory: reports: Reviewed and negative GI: reports: Reviewed and negative Skin: denies: Rash Musculoskeletal: reports: Neck pain. denies: Back pain, Extremity pain Neurologic: denies: Generalized weakness, Focal weakness, Numbness, Headache, Head injury PD PAST MEDICAL HISTORY - Past Medical History Cardiovascular: Hypertension, High cholesterol Respiratory: None Endocrine/Autoimmune: None GI: GERD, Diverticulitis : None HEENT: None Musculoskeletal: None Derm: None - Past Surgical History Past Surgical History: Yes General: Bowel surgery, Colonoscopy - Present Medications Home Medications: Ambulatory Orders Medication Instructions Recorded Confirmed Aspirin [Children's Aspirin] 81 mg PO DAILY 09/28/19 09/28/19 Atorvastatin Calcium 10 mg PO DAILY 09/28/19 09/28/19 Calcium Citrate/Vitamin D3 1 tab PO DAILY 09/28/19 09/28/19 [Calcium Citrate-Vit D3 Tablet] Cyclobenzaprine [Flexeril] 10 mg PO TID PRN #20 tablet 09/28/19 Potassium Chloride 10 tab PO DAILY 09/28/19 09/28/19 Telmisartan [Micardis] 20 mg PO DAILY 09/28/19 09/28/19 - Allergies Allergies/Adverse Reactions: Allergies Allergy/AdvReac Type Severity Reaction Status Date / Time alendronate sodium Allergy Unknown Verified 09/28/19 02:28 [From [employer]] lisinopril Allergy Respiratory Verified 09/28/19 02:28 - Social History Does the pt smoke?: No Smoking Status: Never smoker Does the pt drink ETOH?: Yes Does the pt have substance abuse?: No PD ED PE NORMAL - Vitals Vital signs reviewed: Yes - General General: Alert and oriented X 3, No acute distress, Well developed/nourished - HEENT HEENT: PERRL, EOMI, Moist mucous membranes - Neck Neck: Supple, no meningeal sign, No bony TTP - Cardiac Cardiac: RRR, No murmur, No gallop, No rub - Respiratory Respiratory: No respiratory distress, Clear bilaterally - Abdomen Abdomen: Soft, Non tender - Back Back: No spinal TTP - Derm Derm: Normal color, Warm and dry, No rash - Extremities Extremities: No edema - Neuro Neuro: Alert and oriented X 3, 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, No motor deficit, No sensory deficit Motor: Obeys Commands Verbal: Oriented Results - Vitals Vitals: Vital Signs - 24 hr 09/28/19 09/28/19 09/28/19 02:15 02:40 03:00 Temperature 36.4 C L Heart Rate 76 78 72 Respiratory 12 12 17 Rate Blood Pressure 182/116 H 164/88 H 127/111 H O2 Saturation 98 97 97 09/28/19 03:52 Temperature 36.4 C L Heart Rate 74 Respiratory 16 Rate Blood Pressure 151/76 H O2 Saturation 98 Oxygen O2 Source Room air - Labs Labs: Laboratory Tests 09/28/19 09/28/19 03:00 03:00 WBC 6.5 RBC 3.60 L Hgb 11.6 L Hct 34.2 L MCV 95.0 MCH 32.2 H MCHC 33.9 RDW 11.9 L Plt Count 225 MPV 9.2 Neut # (Auto) 4.8 Lymph # (Auto) 1.2 L [place] # (Auto) 0.4 Eos # (Auto) 0.1 Baso # (Auto) 0.0 Absolute Nucleated RBC 0.00 Nucleated RBC % 0.0 Sodium 137 Potassium 3.9 Chloride 106 Carbon Dioxide 23 Anion Gap 8.0 BUN 25 H Creatinine 0.8 Estimated GFR (MDRD) 70 L Glucose 106 H Calcium 8.6 Total Bilirubin 0.6 AST 21 ALT 20 Alkaline Phosphatase 60 Total Protein 6.9 Albumin 3.9 Globulin 3.0 Albumin/Globulin Ratio 1.3 Lipase 35 - Rads (name of study) chest xray Radiology: Prelim report reviewed, See rad report PD MEDICAL DECISION MAKING - ED course Complexity details: reviewed results, re-evaluated patient, considered differential, d/w patient, d/w family ED course: blood pressure improved without specific intervention during ED stay. Her symptoms are distinctly related to movement of her neck, suggestive of musculo skeletal etiology. No concerning findings on exam nor testing (blood tests, CXR) to suggest an emergent or specific cause, and no "red flags" such as fever, weakness, numbness, ESCALERA, chest pain, dyspnea. She appeared comfortable prior to d/c, declined pain medication but agreeable to flexeril, which was given along with rx for same. Departure - Departure Disposition: 01 Home, Self Care Clinical Impression: Neck pain Hypertension Qualifiers: Hypertension type: unspecified Qualified Code(s): I10 - Essential (primary) hypertension Condition: Good Instructions: ED Hypertension Conf Out Of Control, ED Neck Back Pain General Follow-Up: Rico Goel MD [Primary Care Provider] - Within 1 week Prescriptions: Cyclobenzaprine [Flexeril] 10 mg PO TID PRN #20 tablet PRN Reason: Spasms Discharge Date/Time: 09/28/19 03:53
[2019-09-28 03:15] LABS: BASOPHILS % (AUTO) 0.5 %; EOSINOPHILS # (AUTO) 0.1 10^3/uL (0.0-0.7); EOSINOPHILS % (AUTO) 1.5 %; HGB - HEMOGLOBIN 11.6 g/dL (12.0-16.0); LYMPHOCYTES # (AUTO) 1.2 10^3/uL (1.5-3.5); LYMPHOCYTES % (AUTO) 18.1 %; MEAN CORPUSCULAR HEMOGLOBIN 32.2 pg (27.0-31.0); MEAN CORPUSCULAR HGB CONC 33.9 g/dL (32.0-36.0); MEAN PLATELET VOLUME 9.2 fL (7.9-10.8); MONOCYTES # (AUTO) 0.4 10^3/uL (0.0-1.0); MONOCYTES % (AUTO) 5.5 %; NEUTROPHILS # (AUTO) 4.8 10^3/uL (1.5-6.6); NEUTROPHILS % (AUTO) 74.1 %; PLT - PLATELET COUNT 225 10^3/uL (130-450); RED CELL DISTRIBUTION WIDTH 11.9 % (12.0-15.0); WHITE BLOOD COUNT 6.5 x10^3/uL (4.8-10.8)
[2019-09-28 03:27] LABS: ALBUMIN 3.9 g/dL (3.2-5.5); ALBUMIN/GLOBULIN RATIO 1.3 (1.0-2.2); BILIRUBIN,TOTAL 0.6 mg/dL (0.2-1.0); CALCIUM 8.6 mg/dL (8.5-10.3); CREATININE 0.8 mg/dL (0.4-1.0); TOTAL PROTEIN 6.9 g/dL (6.7-8.2)
[2019-09-28] MEDS ORDERED: CYCLOBENZAPRINE 10 MG TABLET PO STA (03:44)
[2019-09-28 05:00] VITALS: BP 151/76
--- NOTE | 2019-09-28 08:29 | XRAY Report ---
PROCEDURE: Chest 2 View X-Ray INDICATIONS: upper back pain TECHNIQUE: 2 view(s) of the chest. COMPARISON: 02/26/2016 FINDINGS: Surgical changes and devices: None. Lungs and pleura: No pleural effusions or pneumothorax. Lungs are clear. Mediastinum: Mediastinal contours are normal. Heart size is normal. Bones and chest wall: No suspicious bony abnormalities. Soft tissues appear unremarkable. IMPRESSION: No acute cardiopulmonary pathology. No discrepancies. Reviewed by: Julio Al MD on 09/28/2019 8:28 AM PDT Approved by: Julio Al MD on 09/28/2019 8:28 AM PDT Station ID: [id number]
== END 2019-09-28 03:53 | disposition home or self-care (01) ==
LOC: ED 02:12
DX: M54.2 Cervicalgia (principal); M25.511 Pain in right shoulder; M25.512 Pain in left shoulder; I10 Essential (primary) hypertension; Z79.82 Long term (current) use of aspirin
CPT/HCPCS: 36415; 71046; 80053; 83690; 85025; 99284; A9270

== ENCOUNTER 2020-04-09 10:53 | Outpatient (CLI) | payer MEDICARE, OTHER ==
[2020-04-09 19:15] LABS: BASOPHILS % (AUTO) 0.9 %; EOSINOPHILS # (AUTO) 0.1 10^3/uL (0.0-0.7); EOSINOPHILS % (AUTO) 1.5 %; HGB - HEMOGLOBIN 13.8 g/dL (12.0-16.0); LYMPHOCYTES % (AUTO) 29.1 %; MEAN CORPUSCULAR HEMOGLOBIN 31.5 pg (27.0-31.0); MEAN CORPUSCULAR HGB CONC 31.8 g/dL (32.0-36.0); MEAN CORPUSCULAR VOLUME 99.1 fL (81.0-99.0); MONOCYTES # (AUTO) 0.2 10^3/uL (0.0-1.0); MONOCYTES % (AUTO) 6.7 %; NEUTROPHILS % (AUTO) 61.5 %; PLT - PLATELET COUNT 259 10^3/uL (130-450); RED BLOOD COUNT 4.38 10^6/uL (4.20-5.40); RED CELL DISTRIBUTION WIDTH 12.2 % (12.0-15.0); WHITE BLOOD COUNT 3.3 x10^3/uL (4.8-10.8)
[2020-04-09 19:20] LABS: CALCIUM 9.6 mg/dL (8.5-10.3); CREATININE 0.7 mg/dL (0.4-1.0)
== END 2020-04-09 23:59 | disposition home or self-care (01) ==
LOC: LAB.WCP 10:53
PROVIDERS: ATTEND Nurse Practitioner
DX: I47.1 Supraventricular tachycardia (principal)
CPT/HCPCS: 36415; 80048; 85025

== ENCOUNTER 2020-05-14 08:41 | Outpatient (CLI) | payer MEDICARE, OTHER ==
[2020-05-14 12:34] LABS: ALBUMIN 4.2 g/dL (3.2-5.5); ALKALINE PHOSPHATASE 59 IU/L (42-121); ALT ALANINE AMINOTRANSFERASE 21 IU/L (10-60); AST ASPARTATE AMINOTRANSFERASE 23 IU/L (10-42); BILIRUBIN,DIRECT 0.1 mg/dL (0.1-0.5); BILIRUBIN,TOTAL 0.7 mg/dL (0.2-1.0); CHOL/HDL RATIO 2.7 (<4.4); CHOLESTEROL 173 mg/dL; HDL CHOLESTEROL 63 mg/dL; LDL CHOLESTEROL,CALCULATED 101 mg/dL; LDL/HDL RATIO 1.6 (<4.4); TOTAL PROTEIN 7.3 g/dL (6.7-8.2); VLDL CHOLESTEROL 9 mg/dL
== END 2020-05-14 23:59 | disposition home or self-care (01) ==
LOC: LAB.WCP 08:41
PROVIDERS: ATTEND Internal Medicine
DX: E78.5 Hyperlipidemia, unspecified (principal); E03.9 Hypothyroidism, unspecified
CPT/HCPCS: 36415; 80061; 80076; 83721; 84443

== ENCOUNTER 2020-05-30 12:48 | Outpatient (CLI) | payer MEDICARE, OTHER ==
--- NOTE | 2020-05-30 14:24 | DEXA Report ---
PROCEDURE: Dexa Spine and/or Hip INDICATIONS: OSTEOPENIA, DISORDER OF BONE DENSITY TECHNIQUE: Dual energy x-ray absorptiometry (DXA) was performed on a [employer] System. Regions measur ed are the AP Spine, femoral neck, and if needed forearm. COMPARISON: DEXA 10/07/2016 FINDINGS: Lumbar Spine: Bone Mineral Density 1.070 g/cm/cm,T score -0.9, compared to -1.3 Left Hip: Bone Mineral Density 0.912 g/cm/cm,T score -0.8, compared to -0.5 Left Femoral Neck: Bone Mineral Density 0.968 g/cm/cm, T score -0.5, compared to 0.3 (T score greater or equal to -1.0: NORMAL) (T score from -1.1 to -2.4: OSTEOPENIA) (T score less than or equal to -2.5 to: OSTEOPOROSIS) Impression: Normal bone mineral density borderline within the lumbar spine and left hip. It is noted there has been mild improvement in bone mineral density of the lumbar spine although progressive loss of density in the left hip and femoral neck. Patients with diagnosis of osteoporosis or osteopenia should have regular bone mineral density assess ment. For those eligible for Medicare, routine testing is allowed once every 2 years. Testing frequ ency can be increased for patients who have rapidly progressing disease or for those who are receivin g medical therapy to restore bone mass. Reviewed by: Rashmi Marvin MD on 05/30/2020 2:23 PM PST Approved by: Rashmi Marvin MD on 05/30/2020 2:23 PM PST Station ID: [id number]
== END 2020-05-30 12:49 | disposition home or self-care (01) ==
LOC: DI 12:48
PROVIDERS: ATTEND Internal Medicine
DX: M85.88 Other specified disorders of bone density and structure, other site (principal)

== ENCOUNTER 2020-05-31 18:29 | Outpatient (CLI) | payer MEDICARE, OTHER | END 2020-05-31 18:30 | disposition home or self-care (01) | LOC: COV 18:29 | PROVIDERS: ATTEND Surgery | DX: Z01.812 Encounter for preprocedural laboratory examination (principal); K21.9 Gastro-esophageal reflux disease without esophagitis; Z20.822 Contact with and (suspected) exposure to COVID-19 ==

== ENCOUNTER 2020-06-04 10:23 | Day surgery (SDC) | payer MEDICARE, OTHER ==
[2020-06-04] MEDS ORDERED: LACTATED RINGERS 1,000 ML IV ONE ×2 (10:27→14:30)
[2020-06-04] MEDS ORDERED: LIDO GARGLE 30 ML BOTTLE ONE (13:07)
[2020-06-04] MEDS ORDERED: MIDAZOLAM 2 MG/2 ML VIAL ONE ×2 (13:30→14:10)
[2020-06-04] MEDS ORDERED: fentaNYL 250 MCG/5 ML VIAL ONE (13:30)
[2020-06-04] MEDS ORDERED: LIDO GARGLE 30 ML BOTTLE PO ONE (13:32)
[2020-06-04] MEDS ORDERED: BENZOCAINE/TETRACAINE/BUTAMBEN 20 GM TOP ONE (13:33)
[2020-06-04] MEDS ORDERED: IOVERSOL 320 100 ML VIAL IVP ONE ×2 (14:56→17:52)
[2020-06-04] MEDS ORDERED: IOPAMIDOL-300 50 ML VIAL ONE ×2 (14:59→16:51)
[2020-06-04 15:42] LABS: BASOPHILS % (AUTO) 0.7 %; EOSINOPHILS # (AUTO) 0.1 10^3/uL (0.0-0.7); EOSINOPHILS % (AUTO) 1.9 %; HCT - HEMATOCRIT 35.8 % (37.0-47.0); HGB - HEMOGLOBIN 11.7 g/dL (12.0-16.0); LYMPHOCYTES % (AUTO) 22.4 %; MEAN CORPUSCULAR HEMOGLOBIN 31.4 pg (27.0-31.0); MEAN CORPUSCULAR HGB CONC 32.7 g/dL (32.0-36.0); MEAN PLATELET VOLUME 8.7 fL (7.9-10.8); MONOCYTES # (AUTO) 0.2 10^3/uL (0.0-1.0); MONOCYTES % (AUTO) 5.6 %; NEUTROPHILS % (AUTO) 68.7 %; PLT - PLATELET COUNT 242 10^3/uL (130-450); RED BLOOD COUNT 3.73 10^6/uL (4.20-5.40); RED CELL DISTRIBUTION WIDTH 11.9 % (12.0-15.0); WHITE BLOOD COUNT 4.3 x10^3/uL (4.8-10.8)
[2020-06-04 16:04] LABS: ALBUMIN 3.8 g/dL (3.2-5.5); ALBUMIN/GLOBULIN RATIO 1.2 (1.0-2.2); BILIRUBIN,TOTAL 0.6 mg/dL (0.2-1.0); CALCIUM 8.8 mg/dL (8.5-10.3); CREATININE 0.7 mg/dL (0.4-1.0); POTASSIUM 3.2 mmol/L (3.5-5.0); TOTAL PROTEIN 6.9 g/dL (6.7-8.2)
[2020-06-04 16:09] VITALS: BP 149/74
[2020-06-04] MEDS ORDERED: IOPAMIDOL-300 50 ML VIAL PO ONE (17:52)
--- NOTE | 2020-06-04 19:46 | CT Report ---
PROCEDURE: Abdomen/Pelvis W INDICATIONS: eval for remnant colon, po per rectum contrast CONTRAST: IV CONTRAST: Optiray 320 ml: 100 PO CONTRAST: Isovue 300 ml50 TECHNIQUE: After the administration of oral and intravenous and rectal contrast contrast, 5 mm thick sections ac quired from the diaphragms to the symphysis. 5 mm thick coronal and sagittal reformats were acquired . For radiation dose reduction, the following was used: automated exposure control, adjustment of m A and/or kV according to patient size. COMPARISON: None. FINDINGS: Image quality: Excellent. ABDOMEN: Lung bases: Lung bases are clear. Heart size is normal. Enteric contrast in the distal esophagus. T his could be seen in gastric esophageal reflux or esophageal dysmotility. Solid organs: Liver and spleen are normal in size and enhancement. Small splenule. Gallbladder is u nremarkable. Biliary system is non dilated. Pancreas enhances normally. No adrenal nodules. Kidne ys demonstrate normal size and enhancement, without hydronephrosis. Peritoneum and bowel: Stomach is prominent. No small bowel obstruction. The colon is filled with rec maria contrast. There is a clip in the region of the distal transverse colon, (/10). Transverse colon is redundant. The appendix is not definitely seen. Suspect layering fecal residue at the cecum, (59 ). No enhancement at this site is seen. There is difficult to exclude underlying mass or polyp. No fr ee fluid or air. Nodes and vessels: No retroperitoneal or mesenteric adenopathy by size criteria. Aorta and inferior vena cava are normal in size. Miscellaneous: No ventral hernias. PELVIS: Genitourinary: Bladder wall thickness is normal. Postmenopausal uterus. Miscellaneous: No inguinal hernias or adenopathy. Bones: No suspicious bony lesions. Anterolisthesis of L4 on L5 measuring 0.9 cm. Multilevel DDD. No vertebral body compression fractures. IMPRESSION: 1. Suspect mild layering fecal residue at the cecum. It is difficult to exclude underlying mass or po lyp. No obvious mass or area of wall thickening. 2. No adenopathy. No focal liver lesion. 3. Enteric contrast in the distal esophagus. This could be seen in gastric esophageal reflux or esoph ageal dysmotility. Reviewed by: Michele Rubin MD on 06/04/2020 6:44 PM AKDT Approved by: Michele Rubin MD on 06/04/2020 6:44 PM DOROTEO Station ID: [id number]
== END 2020-06-04 10:24 | disposition home or self-care (01) ==
LOC: SDS 10:23
PROVIDERS: ATTEND Surgery
PROC: 0DB28ZX Excision of Middle Esophagus, Via Natural or Artificial Opening Endoscopic, Diagnostic (ICD-10-PCS; 2020-06-04)
PROC: 0DB48ZX Excision of Esophagogastric Junction, Via Natural or Artificial Opening Endoscopic, Diagnostic (ICD-10-PCS; 2020-06-04)
PROC: 0DJD8ZZ Inspection of Lower Intestinal Tract, Via Natural or Artificial Opening Endoscopic (ICD-10-PCS; 2020-06-04)
PROC: 0DB98ZX Excision of Duodenum, Via Natural or Artificial Opening Endoscopic, Diagnostic (ICD-10-PCS; principal; 2020-06-04 12:45)
PROC: 0DB78ZX Excision of Stomach, Pylorus, Via Natural or Artificial Opening Endoscopic, Diagnostic (ICD-10-PCS; 2020-06-04 12:45)
DX: Z12.11 Encounter for screening for malignant neoplasm of colon (principal); K57.30 Diverticulosis of large intestine without perforation or abscess without bleeding; K64.8 Other hemorrhoids; K21.9 Gastro-esophageal reflux disease without esophagitis; K29.60 Other gastritis without bleeding; R13.19 Other dysphagia; K44.9 Diaphragmatic hernia without obstruction or gangrene; I10 Essential (primary) hypertension; E03.9 Hypothyroidism, unspecified; E78.5 Hyperlipidemia, unspecified
CPT/HCPCS: 43239; 74177; 80053; 85025; A9270; G0121; J3010; J7120; Q9967

== ENCOUNTER 2020-07-01 09:26 | Outpatient (CLI) | payer MEDICARE, OTHER ==
--- NOTE | 2020-07-02 12:25 | Mammography Report ---
BILATERAL DIGITAL SCREENING MAMMOGRAM 3D/2D: 07/01/2020 CLINICAL: Routine screening. Comparison is made to exams dated: 04/25/2019 mammogram, 04/11/2018 mammogram, and 03/30/2017 mammogram - [facility]. The tissue of both breasts is predominantly fatty. No significant masses, calcifications, or other findings are seen in either breast. There has been no significant interval change. IMPRESSION: NEGATIVE There is no mammographic evidence of malignancy. A 1 year screening mammogram is recommended. This exam was interpreted at Station ID: [id number]. NOTE: For mammograms, a report in lay terms will be sent to the patient. Approximately 15% of breast malignancies will not be visualized mammographically. In the management of a palpable breast mass, a negative mammogram must not discourage biopsy of a clinically suspicious lesion. Electronically Signed By: Vinod Anderson M.D. ar/penrad:07/01/2020 11:36:54 ACR BI-RADS Category 1: Negative 3341F PARENCHYMAL PATTERN: (F) - The breast(s) demonstrate(s) diffuse fatty replacement. BI-RADS CATEGORY: (1) - 1 RECOMMENDATION: (ANNUAL) - Recommend routine annual screening mammography. [id number] 1 year screening LATERALITY: (B)
== END 2020-07-01 09:27 | disposition home or self-care (01) ==
LOC: DI.N 09:26
PROVIDERS: ATTEND Internal Medicine
DX: Z12.31 Encounter for screening mammogram for malignant neoplasm of breast (principal)

== ENCOUNTER 2021-05-27 07:23 | Outpatient (CLI) | payer MEDICARE, OTHER ==
[2021-05-27 12:35] LABS: CALCIUM 9.2 mg/dL (8.5-10.3); CREATININE 0.9 mg/dL (0.4-1.0); POTASSIUM 4.1 mmol/L (3.5-5.0)
[2021-05-27 12:45] LABS: BASOPHILS % (AUTO) 0.7 %; EOSINOPHILS % (AUTO) 2.5 %; HCT - HEMATOCRIT 38.6 % (37.0-47.0); HGB - HEMOGLOBIN 12.7 g/dL (12.0-16.0); MEAN CORPUSCULAR HEMOGLOBIN 31.4 pg (27.0-31.0); MEAN CORPUSCULAR HGB CONC 32.9 g/dL (32.0-36.0); MEAN CORPUSCULAR VOLUME 95.5 fL (81.0-99.0); MONOCYTES % (AUTO) 9.9 %; NEUTROPHILS % (AUTO) 50.9 %; PLT - PLATELET COUNT 243 10^3/uL (130-450); RED BLOOD COUNT 4.04 10^6/uL (4.20-5.40); WHITE BLOOD COUNT 2.8 x10^3/uL (4.8-10.8)
[2021-05-27 12:47] LABS: ABNORMAL LYMPHS % (MANUAL) 0 %
[2021-05-27 13:30] LABS: BAND NEUTROPHILS % (MANUAL) 1 %; BASOPHILS # (MANUAL) 0.1 10^3/uL (0-0.1); BASOPHILS % (MANUAL) 3 %; EOSINOPHILS # (MANUAL) 0.1 10^3/uL (0-0.7); LYMPHOCYTES % (MANUAL) 34 %; MONOCYTES # (MANUAL) 0.3 10^3/uL (0.0-1.0); NEUTROPHILS # (MANUAL) 1.4 10^3/uL (1.5-6.6); PLATELET ESTIMATE, MANUAL NORMAL (130-450,000) (NORMAL); PLATELET MORPHOLOGY NORMAL APPEARANCE (NORMAL); RBC MORPHOLOGY (MULTIPLE) NORMAL APPEARANCE (NORMAL); WBC MORPHOLOGY (MULTIPLE) NORMAL APPEARANCE (NORMAL)
[2021-05-27 13:31] LABS: DIFFERENTIAL COMMENT MANUAL DIFFERENTIAL
== END 2021-05-27 07:24 | disposition home or self-care (01) ==
LOC: LAB.N 07:23
PROVIDERS: ATTEND Internal Medicine Cardiovascular Disease
DX: I47.1 Supraventricular tachycardia (principal)
CPT/HCPCS: 36415; 80048; 85025

== ENCOUNTER 2021-08-09 09:32 | Outpatient (CLI) | payer MEDICARE, OTHER ==
[2021-08-09 19:46] LABS: BASOPHILS % (AUTO) 0.6 %; EOSINOPHILS # (AUTO) 0.1 10^3/uL (0.0-0.7); EOSINOPHILS % (AUTO) 1.7 %; HCT - HEMATOCRIT 39.1 % (37.0-47.0); HGB - HEMOGLOBIN 12.7 g/dL (12.0-16.0); LYMPHOCYTES # (AUTO) 1.1 10^3/uL (1.5-3.5); LYMPHOCYTES % (AUTO) 22.7 %; MEAN CORPUSCULAR HEMOGLOBIN 31.7 pg (27.0-31.0); MEAN CORPUSCULAR HGB CONC 32.5 g/dL (32.0-36.0); MEAN CORPUSCULAR VOLUME 97.5 fL (81.0-99.0); MONOCYTES # (AUTO) 0.3 10^3/uL (0.0-1.0); MONOCYTES % (AUTO) 7.1 %; NEUTROPHILS # (AUTO) 3.1 10^3/uL (1.5-6.6); NEUTROPHILS % (AUTO) 67.7 %; PLT - PLATELET COUNT 246 10^3/uL (130-450); RED BLOOD COUNT 4.01 10^6/uL (4.20-5.40); RED CELL DISTRIBUTION WIDTH 12.2 % (12.0-15.0); WHITE BLOOD COUNT 4.6 x10^3/uL (4.8-10.8)
[2021-08-09 19:52] LABS: CALCIUM 9.7 mg/dL (8.5-10.3); CREATININE 0.8 mg/dL (0.4-1.0); POTASSIUM 4.2 mmol/L (3.5-5.0)
== END 2021-08-09 09:33 | disposition home or self-care (01) ==
LOC: LAB.N 09:32
PROVIDERS: ATTEND Internal Medicine
DX: I20.8 Other forms of angina pectoris (principal)
CPT/HCPCS: 36415; 80048; 85025

== ENCOUNTER 2021-11-20 10:26 | Outpatient (CLI) | payer MEDICARE, OTHER ==
--- NOTE | 2021-11-21 10:16 | Mammography Report ---
BILATERAL DIGITAL SCREENING MAMMOGRAM 3D/2D: 11/20/2021 CLINICAL: Routine screening. Comparison is made to exams dated: 07/01/2020 mammogram, 04/25/2019 mammogram, 04/11/2018 mammogram, 03/30 mammogram, 02/20/2016 mammogram, and [facility] Both breasts are almost entirely fatty (category a/<25% glandular tissue). No significant masses, calcifications, or other findings are seen in either breast. There has been no significant interval change. IMPRESSION: NEGATIVE There is no mammographic evidence of malignancy. A 1 year screening mammogram is recommended. Based on the Tyrer Cuzick model (a risk assessment model) the patients lifetime risk is 1.8% and her 10 year risk is 0.0%. According to the ACR, ACS, and NCCN guidelines, an annual breast MRI exam madhuri g with mammogram is recommended if the patients lifetime risk is 20% or greater. This exam was interpreted at Station ID: [id number]. NOTE: For mammograms, a report in lay terms will be sent to the patient. Approximately 15% of breast malignancies will not be visualized mammographically. In the management of a palpable breast mass, a negative mammogram must not discourage biopsy of a clinically suspicious lesion. Electronically Signed By: Thong martinez/anita:11/20/2021 13:12:28 ACR BI-RADS Category 1: Negative 3341F PARENCHYMAL PATTERN: (F) - The breast(s) demonstrate(s) diffuse fatty replacement. BI-RADS CATEGORY: (1) - 1 RECOMMENDATION: (ANNUAL) - Recommend routine annual screening mammography. [id number] 1 year screening LATERALITY: (B)
== END 2021-11-20 10:27 | disposition home or self-care (01) ==
LOC: DI.N 10:26
PROVIDERS: ATTEND Internal Medicine
DX: Z12.31 Encounter for screening mammogram for malignant neoplasm of breast (principal)

== ENCOUNTER 2022-03-06 13:15 | Outpatient (CLI) | payer MEDICARE, OTHER ==
[2022-03-06 18:10] LABS: CALCIUM 9.4 mg/dL (8.5-10.3)
== END 2022-03-06 13:16 | disposition home or self-care (01) ==
LOC: LAB.N 13:15
PROVIDERS: ATTEND Internal Medicine
DX: I10 Essential (primary) hypertension (principal)
CPT/HCPCS: 36415; 80048

== ENCOUNTER 2022-06-09 08:53 | Outpatient (CLI) | payer MEDICARE, OTHER ==
[2022-06-09 12:06] LABS: BASOPHILS % (AUTO) 0.5 %; EOSINOPHILS # (AUTO) 0.1 10^3/uL (0.0-0.7); EOSINOPHILS % (AUTO) 1.4 %; HCT - HEMATOCRIT 38.8 % (37.0-47.0); HGB - HEMOGLOBIN 12.4 g/dL (12.0-16.0); LYMPHOCYTES # (AUTO) 1.2 10^3/uL (1.5-3.5); LYMPHOCYTES % (AUTO) 33.7 %; MEAN CORPUSCULAR HEMOGLOBIN 31.2 pg (27.0-31.0); MEAN CORPUSCULAR VOLUME 97.5 fL (81.0-99.0); MEAN PLATELET VOLUME 9.9 fL (7.9-10.8); MONOCYTES # (AUTO) 0.3 10^3/uL (0.0-1.0); MONOCYTES % (AUTO) 7.9 %; NEUTROPHILS # (AUTO) 2.1 10^3/uL (1.5-6.6); NEUTROPHILS % (AUTO) 56.2 %; PLT - PLATELET COUNT 257 10^3/uL (130-450); RED BLOOD COUNT 3.98 10^6/uL (4.20-5.40); RED CELL DISTRIBUTION WIDTH 12.1 % (12.0-15.0); WHITE BLOOD COUNT 3.7 x10^3/uL (4.8-10.8)
[2022-06-09 12:33] LABS: ALBUMIN/GLOBULIN RATIO 1.1 (1.0-2.2); ALKALINE PHOSPHATASE 52 IU/L (42-121); ALT ALANINE AMINOTRANSFERASE 18 IU/L (10-60); AST ASPARTATE AMINOTRANSFERASE 22 IU/L (10-42); BILIRUBIN,TOTAL 0.7 mg/dL (0.2-1.0); BUN - BLOOD UREA NITROGEN 28 mg/dL (6-20); CARBON DIOXIDE - CO2 27 mmol/L (21-32); CHLORIDE 103 mmol/L (101-111); CHOL/HDL RATIO 3.8 (<4.4); CHOLESTEROL 229 mg/dL; GFR - MDRD 54 (>89); GLUCOSE 124 mg/dL (70-100); HDL CHOLESTEROL 61 mg/dL; LDL CHOLESTEROL,CALCULATED 157 mg/dL; LDL/HDL RATIO 2.6 (<4.4); POTASSIUM 4.2 mmol/L (3.5-5.0); SODIUM 140 mmol/L (135-145); TOTAL PROTEIN 7.7 g/dL (6.7-8.2); TRIGLYCERIDES 56 mg/dL; VLDL CHOLESTEROL 11 mg/dL
[2022-06-09 12:34] LABS: THYROID STIMULATING HORMONE 3.72 uIU/mL (0.34-5.60)
== END 2022-06-09 08:54 | disposition home or self-care (01) ==
LOC: LAB.N 08:53
PROVIDERS: ATTEND Internal Medicine
DX: I10 Essential (primary) hypertension (principal); E78.5 Hyperlipidemia, unspecified; E03.9 Hypothyroidism, unspecified
CPT/HCPCS: 36415; 80053; 80061; 83721; 84443; 85025

== ENCOUNTER 2022-06-22 09:43 | Outpatient (CLI) | payer MEDICARE, OTHER ==
--- NOTE | 2022-06-22 12:56 | XRAY Report ---
PROCEDURE: Sacrum/Coccyx INDICATIONS: coccyx pain TECHNIQUE: 3 views of the sacrum and coccyx acquired. COMPARISON: None. FINDINGS: Bones: No fractures or dislocations. No suspicious bony lesions. Soft tissues: Visualized bowel gas pattern is normal. No suspicious soft tissue densities. IMPRESSION: No displaced fracture. Reviewed by: Didier Gold on 06/22/2022 12:54 PM PDT Approved by: Didier Gold on 06/22/2022 12:54 PM PDT Station ID: [id number]
== END 2022-06-22 09:44 | disposition home or self-care (01) ==
LOC: DI 09:43
PROVIDERS: ATTEND Internal Medicine
DX: M53.3 Sacrococcygeal disorders, not elsewhere classified (principal)

== ENCOUNTER 2022-06-24 09:11 | Outpatient (CLI) | payer MEDICARE, OTHER ==
[2022-06-24 12:27] LABS: ESTIMATED AVERAGE GLUCOSE 126 mg/dL (70-100)
[2022-06-24 13:41] LABS: RHEUMATOID FACTOR NEGATIVE (Negative)
[2022-06-26 18:07] LABS: ANTI-DNA (DS) AB QN <1 IU/mL (0-9); ANTINUCLEAR ANTIBODIES IFA Positive (.); CYCLIC CITRULLINATED PEP IGG/A 5 units (0-19)
== END 2022-06-24 09:12 | disposition home or self-care (01) ==
LOC: LAB.N 09:11
PROVIDERS: ATTEND Internal Medicine
DX: R73.01 Impaired fasting glucose (principal); R76.8 Other specified abnormal immunological findings in serum; T69.1XXD Chilblains, subsequent encounter
CPT/HCPCS: 36415; 83036; 85651; 86038; 86140; 86200; 86225; 86430

== ENCOUNTER 2022-12-22 09:16 | Outpatient (CLI) | payer MEDICARE, OTHER ==
--- NOTE | 2022-12-23 13:25 | Mammography Report ---
BILATERAL DIGITAL SCREENING MAMMOGRAM 3D/2D: 12/22/2022 CLINICAL: Routine screening. Comparison is made to exams dated: 11/20/2021 mammogram, 07/01/2020 mammogram, 04/25/2019 mammogram, 04/11 mammogram, 03/30/2017 mammogram, and 02/20/2016 mammogram - [facility]. Both breasts are almost entirely fatty (category a/<25% glandular tissue). There are stable benign calcifications in the right breast. No significant masses, calcifications, or other findings are seen in either breast. There has been no significant interval change. IMPRESSION: BENIGN There is no mammographic evidence of malignancy. A 1 year screening mammogram is recommended. Based on the Tyrer Cuzick model (a risk assessment model) the patients lifetime risk is 1.6% and her 10 year risk is 0.0%. According to the ACR, ACS, and NCCN guidelines, an annual breast MRI exam madhuri g with mammogram is recommended if the patients lifetime risk is 20% or greater. This exam was interpreted at Station ID: [id number]. NOTE: For mammograms, a report in lay terms will be sent to the patient. Approximately 15% of breast malignancies will not be visualized mammographically. In the management of a palpable breast mass, a negative mammogram must not discourage biopsy of a clinically suspicious lesion. Electronically Signed By: Geo stuart/anita:12/22/2022 12:03:31 letter sent: No_Letter ACR BI-RADS Category 2: Benign Finding(s) 3342F PARENCHYMAL PATTERN: (F) - The breast(s) demonstrate(s) diffuse fatty replacement. BI-RADS CATEGORY: (2) - 2 Mammogram [id number] 1 year screening LATERALITY: (B)
== END 2022-12-22 09:17 | disposition home or self-care (01) ==
LOC: DI.N 09:16
DX: Z12.31 Encounter for screening mammogram for malignant neoplasm of breast (principal)

== ENCOUNTER 2023-05-27 08:22 | Outpatient (CLI) | payer MEDICARE, OTHER ==
[2023-05-27 12:28] LABS: BASOPHILS % (AUTO) 0.8 %; EOSINOPHILS # (AUTO) 0.1 10^3/uL (0.0-0.7); EOSINOPHILS % (AUTO) 2.9 %; HCT - HEMATOCRIT 38.7 % (37.0-47.0); HGB - HEMOGLOBIN 12.4 g/dL (12.0-16.0); LYMPHOCYTES # (AUTO) 1.1 10^3/uL (1.5-3.5); LYMPHOCYTES % (AUTO) 29.2 %; MEAN CORPUSCULAR HEMOGLOBIN 31.4 pg (27.0-31.0); MONOCYTES # (AUTO) 0.2 10^3/uL (0.0-1.0); MONOCYTES % (AUTO) 6.2 %; NEUTROPHILS # (AUTO) 2.3 10^3/uL (1.5-6.6); NEUTROPHILS % (AUTO) 60.6 %; PLT - PLATELET COUNT 254 10^3/uL (130-450); RED BLOOD COUNT 3.95 10^6/uL (4.20-5.40); RED CELL DISTRIBUTION WIDTH 12.2 % (12.0-15.0); WHITE BLOOD COUNT 3.7 x10^3/uL (4.8-10.8)
[2023-05-27 12:31] LABS: ESTIMATED AVERAGE GLUCOSE 123 mg/dL (70-100); HEMOGLOBIN A1c% 5.9 % (4.27-6.07)
[2023-05-27 12:43] LABS: ALBUMIN 4.2 g/dL (3.2-5.5); ALKALINE PHOSPHATASE 60 IU/L (42-121); ALT ALANINE AMINOTRANSFERASE 15 IU/L (10-60); AST ASPARTATE AMINOTRANSFERASE 19 IU/L (10-42); BILIRUBIN,TOTAL 0.6 mg/dL (0.2-1.0); BUN - BLOOD UREA NITROGEN 28 mg/dL (6-20); CALCIUM 9.6 mg/dL (8.5-10.3); CARBON DIOXIDE - CO2 25 mmol/L (21-32); CHLORIDE 106 mmol/L (101-111); CREATININE 1.3 mg/dL (0.6-1.3); GFR - MDRD 40 (>89); GLUCOSE 111 mg/dL (74-104); POTASSIUM 4.3 mmol/L (3.5-4.5); SODIUM 137 mmol/L (135-145); TOTAL PROTEIN 7.3 g/dL (6.4-8.9)
[2023-05-27 12:44] LABS: ALBUMIN/GLOBULIN RATIO 1.4 (1.0-2.2); CHOL/HDL RATIO 2.9 (<4.4); CHOLESTEROL 159 mg/dL; HDL CHOLESTEROL 54 mg/dL; LDL CHOLESTEROL,CALCULATED 89 mg/dL; LDL/HDL RATIO 1.6 (<4.4); TRIGLYCERIDES 78 mg/dL (48-352); VLDL CHOLESTEROL 16 mg/dL
[2023-05-27 12:59] LABS: THYROID STIMULATING HORMONE 2.47 uIU/mL (0.34-5.60)
[2023-05-27 13:05] LABS: CREATININE,URINE 122.9 mg/dL
[2023-05-27 13:09] LABS: MICROALBUMIN,URINE < 0.7 mg/dL
== END 2023-05-27 08:23 | disposition home or self-care (01) ==
LOC: LAB.N 08:22
PROVIDERS: ATTEND Internal Medicine
DX: I10 Essential (primary) hypertension (principal); E78.5 Hyperlipidemia, unspecified; R73.01 Impaired fasting glucose; E03.9 Hypothyroidism, unspecified
CPT/HCPCS: 36415; 80053; 80061; 82043; 82570; 83036; 83721; 84443; 85025

== ENCOUNTER 2023-08-17 03:05 | Emergency (ER) | payer MEDICARE, OTHER ==
[2023-08-17] MEDS ORDERED: iohexoL-300 100 ML VIAL ONE (04:18)
[2023-08-17 04:21] LABS: BASOPHILS % (AUTO) 0.1 %; HCT - HEMATOCRIT 35.1 % (37.0-47.0); HGB - HEMOGLOBIN 12.2 g/dL (12.0-16.0); MEAN CORPUSCULAR HEMOGLOBIN 32.9 pg (27.0-31.0); MEAN CORPUSCULAR HGB CONC 34.8 g/dL (32.0-36.0); MEAN CORPUSCULAR VOLUME 94.6 fL (81.0-99.0); MEAN PLATELET VOLUME 9.8 fL (7.9-10.8); MONOCYTES % (AUTO) 2.6 %; NEUTROPHILS % (AUTO) 89.9 %; PLT - PLATELET COUNT 262 10^3/uL (130-450); RED BLOOD COUNT 3.71 10^6/uL (4.20-5.40); RED CELL DISTRIBUTION WIDTH 12.2 % (12.0-15.0); WHITE BLOOD COUNT 17.6 x10^3/uL (4.8-10.8)
[2023-08-17 04:32] LABS: ALBUMIN/GLOBULIN RATIO 1.3 (1.0-2.2); ALKALINE PHOSPHATASE 51 IU/L (42-121); ALT ALANINE AMINOTRANSFERASE 19 IU/L (10-60); AST ASPARTATE AMINOTRANSFERASE 20 IU/L (10-42); BILIRUBIN,TOTAL 0.7 mg/dL (0.2-1.0); BUN - BLOOD UREA NITROGEN 22 mg/dL (6-20); CALCIUM 8.9 mg/dL (8.5-10.3); CARBON DIOXIDE - CO2 23 mmol/L (21-32); CHLORIDE 100 mmol/L (101-111); CREATININE 0.9 mg/dL (0.6-1.3); GFR - MDRD 60 (>89); GLUCOSE 202 mg/dL (74-104); POTASSIUM 3.6 mmol/L (3.5-4.5); SODIUM 136 mmol/L (135-145)
[2023-08-17] MEDS: SODIUM CHLORIDE 0.9% 1,000 ML IV STA (04:37)
[2023-08-17] MEDS: KETOROLAC 30 MG/ML VIAL IVP STA (04:37)
[2023-08-17] MEDS: DEXAMETHASONE 10 MG/ML VIAL IV STA (04:38)
[2023-08-17] MEDS: HYDROmorphone 0.5 MG/0.5 ML SYRINGE IVP STA (04:40)
[2023-08-17 04:45] LABS: ABNORMAL LYMPHS % (MANUAL) 0 %
[2023-08-17 04:50] LABS: LIPASE < 10 U/L (11-82)
[2023-08-17 05:15] LABS: BAND NEUTROPHILS % (MANUAL) 9 %; DIFFERENTIAL COMMENT MANUAL DIFFERENTIAL; LYMPHOCYTES # (MANUAL) 0.4 10^3/uL (1.5-3.5); LYMPHOCYTES % (MANUAL) 2 %; NEUTROPHILS # (MANUAL) 17.2 10^3/uL (1.5-6.6); PLATELET ESTIMATE, MANUAL NORMAL (130-450,000) (NORMAL); RBC MORPHOLOGY (MULTIPLE) NORMAL APPEARANCE (NORMAL)
[2023-08-17] MEDS: iohexoL-300 100 ML VIAL IVP ONE (05:19)
[2023-08-17 05:32] LABS: RAPID STREP SCREEN Negative (Negative)
[2023-08-17 05:58] LABS: B. PARAPERTUSSIS- RESP PCR PAN NOT DETECTED; B. PERTUSSIS- RESP PCR PANEL NOT DETECTED; C. PNEUMONIAE- RESP PCR PANEL NOT DETECTED; CORONAVIRUS 229E-RESP PCR NOT DETECTED; CORONAVIRUS HKU1-RESP PCR NOT DETECTED; CORONAVIRUS NL63-RESP PCR NOT DETECTED; CORONAVIRUS OC43-RESP PCR NOT DETECTED; HUMAN METAPNEUMOVIRUS NOT DETECTED; INFLUENZA A- RESP PCR PANEL NOT DETECTED; INFLUENZA B - RESP PCR PANEL NOT DETECTED; M. PNEUMONIAE- RESP PCR PANEL NOT DETECTED; PARAINFLUENZA VIRUS 1 NOT DETECTED; PARAINFLUENZA VIRUS 2 NOT DETECTED; PARAINFLUENZA VIRUS 3 NOT DETECTED; PARAINFLUENZA VIRUS 4 NOT DETECTED; RHINOVIRUS/ENTEROVIRUS DETECTED; RSV- RESP PCR PANEL NOT DETECTED; SARS-CoV-2 -RESP PCR PANEL NOT DETECTED
[2023-08-17] MEDS: AMPICILLIN/SULBACTAM 3 GM in SODIUM CHLORIDE 0.9% MINIBAG 100 ML IV STA (05:59)
--- NOTE | 2023-08-17 06:33 | ED Physician Documentation ---
PD CALLEJAS HEENT - Stated complaint Stated Complaint: SORE THROAT/SOA - Chief complaint Chief Complaint: Heent - History obtained from History obtained from: Patient, Family - Additional information Additional information: The patient comes to the emergency department chief complaint of throat pain and tightness. She states that her and she were traveling in [place] and they both got an upper respiratory infection about a week ago. Her 's symptoms passed without incident, but the patient states that she began to develop an increasingly sore lower throat which has become quite painful. She states it feels full and like something is in there. She has had some chills but has not measured any fevers. She states she has had some runny nose and cough. She is able to swallow but it hurts and feels tight. No other complaints at this time. PD PAST MEDICAL HISTORY - Past Medical History Cardiovascular: Hypertension, High cholesterol Respiratory: None Endocrine/Autoimmune: None GI: GERD, Diverticulitis : None HEENT: None Musculoskeletal: None Derm: None - Past Surgical History Past Surgical History: Yes General: Bowel surgery, Colonoscopy Ortho: Other - Present Medications Home Medications: Ambulatory Orders Medication Instructions Recorded Confirmed Atorvastatin Calcium 10 mg PO DAILY 09/28/19 08/17/23 Calcium Citrate/Vitamin D3 1 tab PO DAILY 09/28/19 08/17/23 [Calcium Citrate-Vit D3 Tablet] Telmisartan [Micardis] 40 mg PO DAILY 09/28/19 08/17/23 Famotidine 40 mg PO DAILY 08/17/23 08/17/23 Furosemide [Lasix] 20 mg PO DAILY 08/17/23 08/17/23 Halobetasol Propionate 50 gm TP PRN PRN 08/17/23 08/17/23 Multivitamin W/Minerals [Theragran 1 each PO DAILY 08/17/23 08/17/23 M] Mv-Min/FA/Vit K/Lutein/Zeaxant 1 each PO DAILY 08/17/23 08/17/23 [Preservision Areds 2 Plus Mv] [place]-3/Dha/Epa/Fish Oil [Fish Oil 1 each PO DAILY 08/17/23 08/17/23 1,000 mg Softgel] - Allergies Allergies/Adverse Reactions: Allergies Allergy/AdvReac Type Severity Reaction Status Date / Time alendronate sodium Allergy Unknown Verified 08/17/23 03:22 [From Fosamax] lisinopril Allergy Respiratory Verified 08/17/23 03:22 - Social History Does the pt smoke?: No Smoking Status: Never smoker Does the pt drink ETOH?: Yes Does the pt have substance abuse?: No - Immunizations Immunizations are current?: Yes - POLST Patient has POLST: No PD ED PE NORMAL - Vitals Vital signs reviewed: Yes - General General: Alert and oriented X 3, No acute distress, Well developed/nourished - HEENT HEENT: Atraumatic, PERRL, EOMI, Moist mucous membranes, Other (Deeply erythematous pharynx with mild uvular hydrops. Symmetrical posterior pharynx.) - Neck Neck: Supple, no meningeal sign, Other (Mild anterior cervical lymphadenopathy) - Cardiac Cardiac: RRR, No murmur - Respiratory Respiratory: No respiratory distress, Clear bilaterally - Abdomen Abdomen: Soft, Non tender, Non distended - Derm Derm: Normal color, Warm and dry, No rash - Extremities Extremities: No deformity - Neuro Neuro: Alert and oriented X 3 - Psych Psych: Normal mood, Normal affect Results - Vitals Vitals: Vital Signs - 24 hr 08/17/23 08/17/23 08/17/23 03:20 04:37 05:00 Temperature 36.6 C 36.9 C Heart Rate 119 H 109 H 99 Respiratory 20 16 16 Rate Blood Pressure 143/65 H 171/80 H 171/80 H O2 Saturation 96 94 93 If not protocol : Oxygen Flow, liters/minute 08/17/23 08/17/23 08/17/23 05:30 06:00 06:30 Temperature Heart Rate 86 90 89 Respiratory 16 16 16 Rate Blood Pressure 123/60 111/57 L 118/58 L O2 Saturation 92 90 L 94 If not protocol 2 : Oxygen Flow, liters/minute 08/17/23 08/17/23 07:00 07:20 Temperature 36.6 C Heart Rate 85 86 Respiratory 16 16 Rate Blood Pressure 116/62 116/62 O2 Saturation 96 96 If not protocol 2 2 : Oxygen Flow, liters/minute Oxygen O2 Source Nasal cannula Oxygen Flow Rate 2 - Labs Labs: Laboratory Tests 08/17/23 08/17/23 08/17/23 03:38 03:38 04:49 WBC 17.6 H RBC 3.71 L Hgb 12.2 Hct 35.1 L MCV 94.6 MCH 32.9 H MCHC 34.8 RDW 12.2 Plt Count 262 MPV 9.8 Neut # (Auto) Not Reportable Lymph # (Auto) Not Reportable [place] # (Auto) Not Reportable Eos # (Auto) Not Reportable Baso # (Auto) Not Reportable Absolute Nucleated RBC Not Reportable Total Counted 100 Band Neuts % (Manual) 9 Abnorm Lymph % (Manual) 0 Nucleated RBC % Not Reportable Neutrophils # (Manual) 17.2 H Lymphocytes # (Manual) 0.4 L Monocytes # (Manual) 0.0 Eosinophils # (Manual) 0.0 Basophils # (Manual) 0.0 Differential Comment MANUAL DIFFERENTIAL Platelet Estimate NORMAL (130-450,000) RBC Morph Micro Appear NORMAL APPEARANCE Sodium 136 Potassium 3.6 Chloride 100 L Carbon Dioxide 23 Anion Gap 13.0 BUN 22 H Creatinine 0.9 Estimated GFR (MDRD) 60 L Glucose 202 H Calcium 8.9 Total Bilirubin 0.7 AST 20 ALT 19 Alkaline Phosphatase 51 Total Protein 7.0 Albumin 4.0 Globulin 3.0 Albumin/Globulin Ratio 1.3 Lipase < 10 L Nasal Adenovirus (PCR) Nasal B. parapertussis DNA (PCR) Nasal Coronavir 229E PCR Nasal Coronavir HKU1 PCR Nasal Coronavir NL63 PCR Nasal Coronavir OC43 PCR Nasal Enterovir/Rhinovir PCR Nasal Influenza B PCR Nasal Influenza A PCR Nasal Parainfluen 1 PCR Nasal Parainfluen 2 PCR Nasal Parainfluen 3 PCR Nasal Parainfluen 4 PCR Nasal RSV (PCR) Nasal B.pertussis DNA PCR Nasal C.pneumoniae (PCR) Mitch Human Metapneumo PCR Nasal M.pneumoniae (PCR) Nasal SARS-CoV-2 (PCR) Group A Strep Rapid Negative 08/17/23 04:49 WBC RBC Hgb Hct MCV MCH MCHC RDW Plt Count MPV Neut # (Auto) Lymph # (Auto) [place] # (Auto) Eos # (Auto) Baso # (Auto) Absolute Nucleated RBC Total Counted Band Neuts % (Manual) Abnorm Lymph % (Manual) Nucleated RBC % Neutrophils # (Manual) Lymphocytes # (Manual) Monocytes # (Manual) Eosinophils # (Manual) Basophils # (Manual) Differential Comment Platelet Estimate RBC Morph Micro Appear Sodium Potassium Chloride Carbon Dioxide Anion Gap BUN Creatinine Estimated GFR (MDRD) Glucose Calcium Total Bilirubin AST ALT Alkaline Phosphatase Total Protein Albumin Globulin Albumin/Globulin Ratio Lipase Nasal Adenovirus (PCR) NOT DETECTED Nasal B. parapertussis DNA (PCR) NOT DETECTED Nasal Coronavir 229E PCR NOT DETECTED Nasal Coronavir HKU1 PCR NOT DETECTED Nasal Coronavir NL63 PCR NOT DETECTED Nasal Coronavir OC43 PCR NOT DETECTED Nasal Enterovir/Rhinovir PCR DETECTED A Nasal Influenza B PCR NOT DETECTED Nasal Influenza A PCR NOT DETECTED Nasal Parainfluen 1 PCR NOT DETECTED Nasal Parainfluen 2 PCR NOT DETECTED Nasal Parainfluen 3 PCR NOT DETECTED Nasal Parainfluen 4 PCR NOT DETECTED Nasal RSV (PCR) NOT DETECTED Nasal B.pertussis DNA PCR NOT DETECTED Nasal C.pneumoniae (PCR) NOT DETECTED Mitch Human Metapneumo PCR NOT DETECTED Nasal M.pneumoniae (PCR) NOT DETECTED Nasal SARS-CoV-2 (PCR) NOT DETECTED Group A Strep Rapid PD Medical Decision Making - ED course Complexity details: reviewed results, re-evaluated patient, considered differential, d/w patient, d/w family ED course: The patient was treated symptomatically with Toradol and Decadron and given IV fluids, and was worked up with laboratory studies which showed a white blood cell count of 17,000. Labs are otherwise unremarkable. Patient was sent for CT scan of the neck which showed a fluid collection between the submandibular gland it suprahyoid strap muscles with diffuse inflammation extending down to the epiglottis and vocal cords. I ordered IV Unasyn for the patient, who is feeling a little better after the medications that she had been given. I spoke with Dr. Ying ENGLISH and he stated that this would probably be best taken care of by ENT. I spoke with Dr. Bliss of ENT at [facility], who seemed to be driving in her car at the time, and she stated she did not see why [facility] [place]. She stated she would not accept the pt, and directed that the pt be transferred to the [facility], and they could consult her. I was then directed to the [facility], where I spoke with Dr. Noam Garcia, who graciously accepted the pt. The pt was in stable condition at the time of transfer, and was sent via air, due to the potential for loss of airway. Departure - Departure Disposition: 02 Transfer Acute Care Hosp Clinical Impression: Neck abscess Condition: Serious Forms: PCP List Discharge Date/Time: 08/17/23 07:50
[2023-08-17 07:08] VITALS: BP 116/62; O2SAT 96
--- NOTE | 2023-08-17 11:19 | CT Report ---
PROCEDURE: Soft Tissue Neck W INDICATIONS: anterior neck pain, swelling CONTRAST: Omni 300, 100mls TECHNIQUE: After the administration of intravenous contrast, 3.0 mm axial sections acquired from the sella to th e aortic arch. Additional oblique axial 3.0 mm sections acquired through the pharynx. 3 mm thick co delmy reformats were generated. For radiation dose reduction, the following was used: automated exp osure control, adjustment of mA and/or kV according to patient size. COMPARISON: None. FINDINGS: Image quality: Excellent. Lymph nodes: No enlarged lymph nodes seen throughout the neck. Vessels: Visualized vasculature appears patent. There are calcified plaques at the carotid bifurcat ions bilaterally. There is mild wall thickening of the proximal left internal carotid artery. Neck spaces: Uvula, epiglottis and aryepiglottic fold are thickened. There is soft tissue thickening of the retropharyngeal/prevertebral soft tissue measuring 1.6 mm with appearance of complex fluid. There is increased; mucosal enhancement in the nasopharynx and oropharynx. There is complex fluid den sity in the left piriform sinus measuring 10.5 x 1.6 x 3.9 cm with mass effect causing effacement of the left piriform sinus and vallecula. Fluid collection is also seen in the neck, left greater than right, adjacent to the submandibular gland. Enlargement of the adenoid and tonsils. The hypopharyngeal central airways are severely narrowed just above the vocal cord. Glands: The parotid and submandibular glands appear normal. There is a small subcentimeter nodule i n the left thyroid thyroid lobe. Miscellaneous: Visualized brain and orbits appear normal. Lung apices appear clear. Superficial so ft tissues appear normal. Bones: No suspicious bony lesions. Severe degenerative disc disease and moderate facet arthropathy i n cervical spine. Visualized sinuses and mastoids appear unremarkable. IMPRESSION: 1. Severe narrowing hypopharyngeal central airway. Recommend ENT consultation. 2. There is soft tissue thickening of the retropharyngeal/prevertebral soft tissue measuring 1.6 mm w ith appearance of complex fluid, most likely infectious/inflammatory in nature. 3. Thickening of the uvula, epiglottis and aryepiglottic fold and increased nasopharyngeal and oropha ryngeal mucosal enhancement consistent with consistent with pharyngitis and epiglottitis. 4. Complex fluid density in the left piriform sinus with mass effect causing effacement of the left p iriform sinus and vallecula. No definitive mucosal based mass. Please correlate with findings on dire ct visualization. 5. No organized rim-enhancing drainable fluid collection at this time. 6. Adenoid and tonsillar enlargement consistent with adenoiditis/tonsillitis. 7. Mild wall thickening of the proximal left internal carotid artery most likely secondary to direct spread of inflammation/infection from associated ascites. The left common and internal carotid artery are are patent. No significant discrepancy with the preliminary interpretation. CLINICAL RECOMMENDATION STATEMENTS: In patients <35 years with an ITN detected on CT, MRI, or extrathyroidal ultrasound, the Committee re commends further evaluation with dedicated thyroid ultrasound if the nodule is "e1 cm and has no susp icious imaging features, and if the patient has normal life expectancy. In patients "e35 years with an ITN detected on CT, MRI, or extrathyroidal ultrasound, the Committee r ecommends further evaluation with dedicated thyroid ultrasound if the nodule is "e1.5 cm and has no s uspicious imaging features, and if the patient has normal life expectancy. (ACR, 2014) Reviewed by: Carlee Hernandez MD on 08/17/2023 11:18 AM PDT Approved by: Carlee Hernandez MD on 08/17/2023 11:18 AM PDT Station ID: [id number]
== END 2023-08-17 07:50 | disposition short-term general hospital (02) ==
LOC: ED 03:05
DX: L02.11 Cutaneous abscess of neck (principal)
CPT/HCPCS: 36415; 70491; 80053; 83690; 85025; 87070; 87430; 87633; 96361; 96365; 96375; 99285; J1170; Q9967